=== PATIENT | male | born 1950 ===

== ENCOUNTER → 2019-04-19 | Outpatient (REF) | payer MEDICARE | LOC: M LAB LCGH 15:07 | PROVIDERS: ATTEND Surgery | DX: R59.1 Generalized enlarged lymph nodes (principal) ==

== ENCOUNTER 2022-12-05 18:07 | Inpatient (IN) | payer MEDICARE ==
[~2022-12-05] VITALS: Ht 185.4 cm; Wt 70.6 kg
[2022-12-05 20:16] VITALS: BP 199/99
[2022-12-05] MEDS ORDERED: ACETAMINOPHEN TAB 650MG DOSE (2X325MG) PO PRN (20:40)
[2022-12-05] MEDS: CARVedilol 12.5 MG TAB PO SCH (21:00)
[2022-12-05] MEDS ORDERED: PRAV40TA2 PO (21:19)
[2022-12-05] MEDS ORDERED: FLOM0.4C39 PO (21:19)
[2022-12-05] MEDS ORDERED: OMEP40CA5 PO (21:19)
[2022-12-05] MEDS ORDERED: CARV25TA PO (21:19)
[2022-12-05] MEDS ORDERED: HOME MED LIST COMPLETE! XX SCH (21:25)
[2022-12-05] MEDS ORDERED: DEXTROSE 50% 50ML SYRINGE IV PRN (21:50)
[2022-12-05] MEDS ORDERED: GLUCOSE 4GM CHEW TABLET PO PRN (21:50)
[2022-12-05] MEDS ORDERED: GLUCAGON INJ 1MG VIAL SC PRN (21:50)
[2022-12-05] MEDS ORDERED: IPRATROPIUM 0.5MG/ALBUTEROL 2.5MG INH SOL UD 3ML (DUONEB) NEB PRN (21:50)
[2022-12-05 21:54] VITALS: BP 177/98
[2022-12-05] MEDS ORDERED: guaiFENesin SYRUP 200MG 10ML UDC PO PRN (23:00)
[2022-12-05 23:49] VITALS: BP 181/97
[2022-12-06] VITALS (25 sets, daily range): BP systolic 107–217; BP diastolic 0–91; O2SAT 90–96
[2022-12-06] MEDS ORDERED: DOXYCYCLINE HYCLATE 100 MG in D5W MINI-BAG PLUS 100 ML IV SCH ×2
[2022-12-06] MEDS: OMEPRAZOLE 20MG CAP PO SCH ×3 (00:45→20:24)
[2022-12-06] MEDS: RAMELTEON 8 MG TAB (ROZEREM) PO PRN (00:45)
[2022-12-06] MEDS ORDERED: hydrALAZINE 20MG/ML 1ML VIAL IV PRN (01:00)
[2022-12-06] MEDS: CARVedilol 12.5 MG TAB PO SCH ×3 (01:20→20:25)
[2022-12-06] MEDS ORDERED: hydrALAZINE 20MG/ML 1ML VIAL IV ONE (03:00)
[2022-12-06 06:42] LABS: MEAN CORPUSCULAR HEMOGLOBIN 29.3 pg (27.0-33.0); MEAN CORPUSCULAR HGB CONC 31.1 g/dl (32.0-36.5); MEAN CORPUSCULAR VOLUME 94.1 fl (80.0-96.0); PLATELET COUNT, AUTOMATED 342 10^3/uL (150-450); RED BLOOD COUNT 4.78 10^6/uL (4.30-6.10); WHITE BLOOD COUNT 12.4 10^3/uL (4.0-10.0)
[2022-12-06 07:26] LABS: ALBUMIN 2.3 G/DL (3.2-5.2); ALKALINE PHOSPHATASE 144 U/L (46-116); ALT/SGPT 19 U/L (7.0-40); AST/SGOT 14 U/L (<34); BILIRUBIN,TOTAL < 0.2 MG/DL (0.3-1.2); BLOOD UREA NITROGEN 79 MG/DL (9-23); CALCIUM LEVEL 8.8 MG/DL (8.3-10.6); CARBON DIOXIDE LEVEL 18 MMOL/L (20-31); CHLORIDE LEVEL 103 MMOL/L (98-107); CREATININE FOR GFR 8.24 MG/DL (0.70-1.30); GLOMERULAR FILTRATION RATE 6.8 (>42); GLUCOSE, FASTING 171 MG/DL (74-106); MAGNESIUM LEVEL 2.4 MG/DL (1.8-2.4); POTASSIUM SERUM 5.4 MMOL/L (3.5-5.1); SODIUM LEVEL 136 MMOL/L (136-145); TOTAL PROTEIN 5.8 G/DL (5.7-8.2)
[2022-12-06] MEDS: HEPARIN SOD (PORCINE) 5000UNITS/ML 1ML VIAL/SYRINGE SQ SCH ×2 (08:18→20:24)
[2022-12-06] MEDS: INSULIN LISPRO (NovoLOG) PER UNIT SC SCH ×4 (08:18→20:25)
[2022-12-06] MEDS: TAMSULOSIN 0.4 MG CAP PO SCH (08:19)
[2022-12-06] MEDS: DOXYCYCLINE HYCLATE 100MG TABLET PO SCH ×2 (09:07→20:24)
[2022-12-06] MEDS ORDERED: HEPARIN 1,000UNITS/ML 10ML VIAL (FOR RADIOLOGY & DIALYSIS ONLY) XX SCH (09:10)
[2022-12-06] MEDS ORDERED: LIDOCAINE 1% SDV 5ML VIAL SC PRN (09:10)
[2022-12-06] MEDS ORDERED: HEPARIN 1,000UNITS/ML 10ML VIAL (FOR RADIOLOGY & DIALYSIS ONLY) IV PRN (09:10)
[2022-12-06] MEDS ORDERED: SODIUM CHLORIDE 0.9% 1000ML IV PRN (09:10)
[2022-12-06 14:36] LABS: HEPATITIS B SURFACE ANTIBODY NEGATIVE (POSITIVE)
[2022-12-06 14:49] LABS: HEPATITIS B SURFACE ANTIGEN NEGATIVE (NEGATIVE)
[2022-12-06 15:10] LABS: HEPATITIS B CORE ANTIBODY IGM NEGATIVE (NEGATIVE)
[2022-12-06] MEDS: ALBUTEROL 90 MCG/ACT 8GM HFA INHALER INH SCH ×2 (15:31→20:15)
[2022-12-06] MEDS: PRAVASTATIN 20 MG TAB PO SCH (20:24)
[2022-12-06] MEDS: cefTRIAXone SOD 1 GM in D5W MINI-BAG PLUS 50 ML IV SCH (20:25)
[2022-12-07 04:35] VITALS: BP 161/83
[2022-12-07 05:39] LABS: BASO # 0.1 10^3/uL (0.0-0.2); BASO % 0.7 % (0.0-1.0); EOS # 1.2 10^3/uL (0.0-0.5); EOS % 9.6 % (0.0-3.0); HEMATOCRIT 46.3 % (42.0-52.0); HEMOGLOBIN 14.6 g/dl (13.5-17.5); LYMPH # 0.7 10^3/uL (1.5-5.0); LYMPH % 5.5 % (24.0-44.0); MEAN CORPUSCULAR HGB CONC 31.5 g/dl (32.0-36.5); MEAN CORPUSCULAR VOLUME 91.9 fl (80.0-96.0); MONO # 1.3 10^3/uL (0.0-0.8); MONO % 9.9 % (2.0-8.0); NEUTROPHILS # 9.1 10^3/uL (1.5-8.5); NEUTROPHILS % 72.4 % (36.0-66.0); PLATELET COUNT, AUTOMATED 356 10^3/uL (150-450); RED BLOOD COUNT 5.04 10^6/uL (4.30-6.10); WHITE BLOOD COUNT 12.6 10^3/uL (4.0-10.0)
[2022-12-07 06:02] LABS: CALCIUM LEVEL 8.6 MG/DL (8.3-10.6); CREATININE FOR GFR 5.4 MG/DL (0.70-1.30); GLOMERULAR FILTRATION RATE 11.1 (>42); POTASSIUM SERUM 4.7 MMOL/L (3.5-5.1)
[2022-12-07] MEDS: ALBUTEROL 90 MCG/ACT 8GM HFA INHALER INH SCH ×4 (07:31→19:34)
[2022-12-07 07:55] VITALS: BP 150/81
[2022-12-07] MEDS: HEPARIN SOD (PORCINE) 5000UNITS/ML 1ML VIAL/SYRINGE SQ SCH ×2 (08:19→20:58)
[2022-12-07] MEDS: INSULIN LISPRO (NovoLOG) PER UNIT SC SCH ×4 (08:20→20:45)
[2022-12-07] MEDS: OMEPRAZOLE 20MG CAP PO SCH ×2 (08:20→20:52)
[2022-12-07] MEDS: TAMSULOSIN 0.4 MG CAP PO SCH (08:21)
[2022-12-07] MEDS: DOXYCYCLINE HYCLATE 100MG TABLET PO SCH ×2 (08:21→20:58)
[2022-12-07] MEDS: CARVedilol 12.5 MG TAB PO SCH ×2 (08:21→20:57)
[2022-12-07] MEDS ORDERED: PREVNAR-20 VACCINE 0.5ML SYRINGE IM.IMMUN ONE (09:00)
[2022-12-07 16:15] VITALS: BP 122/86
[2022-12-07] MEDS: cefTRIAXone SOD 1 GM in D5W MINI-BAG PLUS 50 ML IV SCH (17:55)
[2022-12-07] MEDS: PRAVASTATIN 20 MG TAB PO SCH (20:58)
[2022-12-08] MEDS: DOXYCYCLINE HYCLATE 100MG TABLET PO SCH ×2 (05:34→21:10)
[2022-12-08] MEDS: OMEPRAZOLE 20MG CAP PO SCH ×2 (05:34→21:10)
[2022-12-08] MEDS: TAMSULOSIN 0.4 MG CAP PO SCH (05:34)
[2022-12-08] MEDS: HEPARIN SOD (PORCINE) 5000UNITS/ML 1ML VIAL/SYRINGE SQ SCH ×2 (05:36→21:09)
[2022-12-08] MEDS: CARVedilol 12.5 MG TAB PO SCH ×2 (05:36→21:10)
[2022-12-08 05:57] VITALS: BP 172/88
[2022-12-08 06:12] LABS: BASO # 0.1 10^3/uL (0.0-0.2); BASO % 1.1 % (0.0-1.0); EOS # 1.1 10^3/uL (0.0-0.5); EOS % 9.8 % (0.0-3.0); HEMATOCRIT 46.4 % (42.0-52.0); HEMOGLOBIN 14.5 g/dl (13.5-17.5); LYMPH # 0.8 10^3/uL (1.5-5.0); LYMPH % 7.1 % (24.0-44.0); MEAN CORPUSCULAR HEMOGLOBIN 29.1 pg (27.0-33.0); MEAN CORPUSCULAR HGB CONC 31.3 g/dl (32.0-36.5); MONO # 1.2 10^3/uL (0.0-0.8); MONO % 10.7 % (2.0-8.0); NEUTROPHILS # 7.9 10^3/uL (1.5-8.5); NEUTROPHILS % 69.6 % (36.0-66.0); PLATELET COUNT, AUTOMATED 322 10^3/uL (150-450); RED BLOOD COUNT 4.99 10^6/uL (4.30-6.10); WHITE BLOOD COUNT 11.4 10^3/uL (4.0-10.0)
[2022-12-08 06:52] LABS: CALCIUM LEVEL 8.3 MG/DL (8.3-10.6); CREATININE FOR GFR 6.78 MG/DL (0.70-1.30); GLOMERULAR FILTRATION RATE 8.5 (>42); POTASSIUM SERUM 5.3 MMOL/L (3.5-5.1)
[2022-12-08] MEDS ORDERED: HEPARIN 1,000UNITS/ML 10ML VIAL (FOR RADIOLOGY & DIALYSIS ONLY) IV PRN (07:15)
[2022-12-08] MEDS ORDERED: SODIUM CHLORIDE 0.9% 1000ML IV PRN (07:15)
[2022-12-08] MEDS ORDERED: HEPARIN 1,000UNITS/ML 10ML VIAL (FOR RADIOLOGY & DIALYSIS ONLY) XX SCH (07:15)
[2022-12-08] MEDS: INSULIN LISPRO (NovoLOG) PER UNIT SC SCH ×4 (07:43→21:12)
[2022-12-08] MEDS: ALBUTEROL 90 MCG/ACT 8GM HFA INHALER INH SCH ×4 (08:16→19:14)
[2022-12-08] MEDS ORDERED: **hydrALAZINE HCL** 25 MG TAB PO SCH (12:55)
[2022-12-08] MEDS ORDERED: SELF1KIT MC (13:16)
[2022-12-08] MEDS ORDERED: CEFD300C41 PO (13:16)
[2022-12-08] MEDS ORDERED: BACI1CAP PO (13:16)
[2022-12-08] MEDS ORDERED: DOXY-444 PO (13:16)
[2022-12-08] MEDS ORDERED: HYDR-3911 PO (13:18)
[2022-12-08 15:09] LABS: BODY FLUID CULTURE Not indicated. (.); LEGIONELLA ANTIGEN URINE Negative (Negative); ORGANISM ID Not indicated. (.); SPECIMEN SOURCE Urine (.)
[2022-12-08] MEDS: guaiFENesin ER 600 MG TAB PO SCH ×2 (16:09→21:10)
[2022-12-08] MEDS: **hydrALAZINE HCL** 25 MG TAB PO SCH ×3 (16:09→23:27)
[2022-12-08] MEDS: cefTRIAXone SOD 1 GM in D5W MINI-BAG PLUS 50 ML IV SCH (17:39)
[2022-12-08 20:00] VITALS: BP 117/66
[2022-12-08] MEDS: RAMELTEON 8 MG TAB (ROZEREM) PO PRN (21:09)
[2022-12-08] MEDS: PRAVASTATIN 20 MG TAB PO SCH (21:10)
[2022-12-09 06:00] VITALS: BP 131/73
[2022-12-09] MEDS: **hydrALAZINE HCL** 25 MG TAB PO SCH ×2 (06:04→12:00)
[2022-12-09] MEDS: ALBUTEROL 90 MCG/ACT 8GM HFA INHALER INH SCH ×2 (07:56→11:55)
[2022-12-09 08:23] LABS: BASO # 0.1 10^3/uL (0.0-0.2); BASO % 0.7 % (0.0-1.0); EOS # 0.9 10^3/uL (0.0-0.5); EOS % 7.1 % (0.0-3.0); HEMATOCRIT 47.8 % (42.0-52.0); HEMOGLOBIN 14.7 g/dl (13.5-17.5); LYMPH # 0.8 10^3/uL (1.5-5.0); LYMPH % 6.7 % (24.0-44.0); MEAN CORPUSCULAR HEMOGLOBIN 28.9 pg (27.0-33.0); MEAN CORPUSCULAR HGB CONC 30.8 g/dl (32.0-36.5); MEAN CORPUSCULAR VOLUME 93.9 fl (80.0-96.0); MONO # 1.4 10^3/uL (0.0-0.8); MONO % 11.2 % (2.0-8.0); NEUTROPHILS # 8.8 10^3/uL (1.5-8.5); NEUTROPHILS % 71.9 % (36.0-66.0); PLATELET COUNT, AUTOMATED 310 10^3/uL (150-450); RED BLOOD COUNT 5.09 10^6/uL (4.30-6.10); WHITE BLOOD COUNT 12.2 10^3/uL (4.0-10.0)
[2022-12-09 08:46] LABS: CALCIUM LEVEL 8.4 MG/DL (8.3-10.6); CREATININE FOR GFR 5.74 MG/DL (0.70-1.30); GLOMERULAR FILTRATION RATE 10.4 (>42)
[2022-12-09] MEDS: INSULIN LISPRO (NovoLOG) PER UNIT SC SCH ×2 (08:51→12:15)
[2022-12-09] MEDS: HEPARIN SOD (PORCINE) 5000UNITS/ML 1ML VIAL/SYRINGE SQ SCH (08:52)
[2022-12-09] MEDS: CARVedilol 12.5 MG TAB PO SCH (08:52)
[2022-12-09] MEDS: DOXYCYCLINE HYCLATE 100MG TABLET PO SCH (08:52)
[2022-12-09] MEDS: OMEPRAZOLE 20MG CAP PO SCH (08:52)
[2022-12-09] MEDS: guaiFENesin ER 600 MG TAB PO SCH (08:52)
[2022-12-09] MEDS: TAMSULOSIN 0.4 MG CAP PO SCH (08:52)
[2022-12-09] MEDS ORDERED: PREVNAR-20 VACCINE 0.5ML SYRINGE IM.IMMUN ONE (09:00)
[2022-12-09 12:00] VITALS: BP 115/67
[2022-12-14 10:09] LABS: URINE STREP PNEUMONIAE ANTIGEN Positive (Negative)
== END 2022-12-09 14:10 | disposition home or self-care (01) | DRG 871 ==
LOC: ENRESERV 18:42 → M PCU 20:40 → M MSPAV 12-07 16:11
PROVIDERS: ADMIT Internal Medicine; ATTEND General Practice
PROC: 5A1D70Z Performance of Urinary Filtration, Intermittent, Less than 6 Hours Per Day (ICD-10-PCS; principal; 2022-12-06)
DX: A41.9 Sepsis, unspecified organism (principal); N18.6 End stage renal disease; J96.01 Acute respiratory failure with hypoxia; J15.6 Pneumonia due to other Gram-negative bacteria; I12.0 Hypertensive chronic kidney disease with stage 5 chronic kidney disease or end stage renal disease; E87.1 Hypo-osmolality and hyponatremia; N25.81 Secondary hyperparathyroidism of renal origin; D63.1 Anemia in chronic kidney disease; E11.42 Type 2 diabetes mellitus with diabetic polyneuropathy; E11.22 Type 2 diabetes mellitus with diabetic chronic kidney disease; E78.5 Hyperlipidemia, unspecified; E87.5 Hyperkalemia; N40.0 Benign prostatic hyperplasia without lower urinary tract symptoms; K21.9 Gastro-esophageal reflux disease without esophagitis; I16.0 Hypertensive urgency; D64.9 Anemia, unspecified; E11.319 Type 2 diabetes mellitus with unspecified diabetic retinopathy without macular edema; Z88.0 Allergy status to penicillin; Z79.899 Other long term (current) drug therapy; Z87.891 Personal history of nicotine dependence